=== PATIENT | male | born 2000 | race Hispanic/Latino ===

== ENCOUNTER 2022-09-22 09:17 | Emergency (ER) | payer BC ==
[~2022-09-22] VITALS: Ht 175.3 cm; Wt 95.3 kg
[2022-09-22] MEDS ORDERED: HYDROCODONE/APAP 7.5MG-325MG 1 EA TAB PO STA (09:26)
[2022-09-22] MEDS ORDERED: SODIUM CHLORIDE 0.9% 1000ML 1,000 ML IV SCH (09:30)
[2022-09-22] MEDS ORDERED: DIPHENHYDRAMINE HCL INJ 50 MG/ML VIAL IV ONE (09:30)
[2022-09-22] MEDS ORDERED: METHYLPREDNISOLONE SOD SUCC 125 MG/2ML VIAL IV ONE (09:30)
[2022-09-22 09:44] LABS: BASOPHILS % 0.1 % (0.0-1.0); EOSINOPHILS # (AUTO) 0.1 (0.0-0.4); EOSINOPHILS % 0.7 % (0.0-6.0); HEMATOCRIT 37.7 % (38.2-49.6); LYMPHOCYTES # (AUTO) 0.7 (1.0-3.2); LYMPHOCYTES % 6.4 % (18.0-39.1); MEAN CORPUSCULAR HEMOGLOBIN 29.2 pg (28-32); MEAN CORPUSCULAR HGB CONC 31.8 g/dL (31-35); MEAN CORPUSCULAR VOLUME 91.7 fL (81-99); MONOCYTES # (AUTO) 0.5 (0.2-0.8); NEUTROPHILS # (AUTO) 9.3 (2.1-6.9); NEUTROPHILS % 86.6 % (38.7-80.0); PLATELET COUNT 250 x10e3/uL (140-360); RED BLOOD COUNT 4.11 x10e6/uL (4.3-5.7); RED CELL DISTRIBUTION WIDTH 12.8 % (11.7-14.4)
[2022-09-22] MEDS ORDERED: ALBUTEROL/IPRATROPIUM 3 ML NEB NEB ONE (09:45)
[2022-09-22 10:05] LABS: ALBUMIN 3.3 g/dL (3.5-5.0); ALBUMIN/GLOBULIN RATIO 0.6 (0.8-2.0); ANION GAP 15.3 mmol/L (8-16); CALCIUM 8.8 mg/dL (8.4-10.2); CREATININE, SERUM 0.74 mg/dL (0.72-1.25); POTASSIUM 4.3 mmol/L (3.5-5.1)
[2022-09-22] MEDS ORDERED: IOPAMIDOL 370 MG/ML 100 ML INFUS..BTL INJ ONE (11:24)
[2022-09-22] MEDS ORDERED: AZITHROMYCIN250 MG PO (12:58)
== END 2022-09-22 13:28 | disposition home or self-care (01) ==
LOC: ER 09:30
DX: J20.9 Acute bronchitis, unspecified (principal); Z28.310 Unvaccinated for COVID-19; Z72.0 Tobacco use; F12.90 Cannabis use, unspecified, uncomplicated; Z20.822 Contact with and (suspected) exposure to COVID-19
CPT/HCPCS: 36415; 71045; 71260; 80053; 85025; 85379; 93005; 94640; 94799; 99284; J1200; J2930; J7030; Q9967; U0002

== ENCOUNTER 2024-05-07 20:00 | Emergency (ER) | payer BC ==
[~2024-05-07] VITALS: Ht 175.3 cm; Wt 99.8 kg
[~2024-05-07 20:00] MED LIST: AZITHROMYCIN250 MG PO; FLUCONAZOLE100 MG PO; PREDNISONE20 MG PO; ULTRAM 50MG50 MG PO
[2024-05-07 21:33] VITALS: PULSE 93; RESP 16; TEMP 97.3; O2SAT 98
== END 2024-05-07 21:35 | disposition home or self-care (01) ==
LOC: ER 20:04
DX: S93.402A Sprain of unspecified ligament of left ankle, initial encounter (principal); B20 Human immunodeficiency virus [HIV] disease; Z72.0 Tobacco use
CPT/HCPCS: 99283

== ENCOUNTER 2024-10-23 13:27 | Emergency (ER) | payer SELFPAY ==
[~2024-10-23] VITALS: Ht 175.3 cm; Wt 104.3 kg
[2024-10-23 13:41] VITALS: PULSE 115; RESP 16; TEMP 99.3; O2SAT 100
== END 2024-10-23 14:08 | disposition home or self-care (01) ==
LOC: ER 13:38
DX: Z59.82 Transportation insecurity (principal); B20 Human immunodeficiency virus [HIV] disease; F17.200 Nicotine dependence, unspecified, uncomplicated
CPT/HCPCS: 99283